=== PATIENT | male | born 1955 | race Caucasian/White ===

== ENCOUNTER → 2025-06-21 10:00 | Outpatient (REF) | payer MEDICARE, OTHER, SELFPAY ==
[2025-06-21 12:40] LABS: Hematocrit 41.9 % (39.0-52.0); Hemoglobin 13.8 g/dL (13.0-18.0); Mean Corp Hgb Conc. 32.9 g/dL (33.0-37.0); Mean Corpuscular Volume 88.6 fL (80.0-94.0); Nucleated Red Blood Cells % 0 % (-); Platelet Count 286 10^3/uL (130-400); Red Cell Dist. Width 13.6 % (11.5-14.5)
[2025-06-21 16:08] LABS: Blood Urea Nitrogen 22 mg/dl (9-20); Calcium 10.1 mg/dl (8.4-10.2); Carbon Dioxide 26 mmol/L (22-30); Chloride 103 mmol/L (98-107); Glucose 95 mg/dl (70-99); Potassium 4.5 mmol/L (3.5-5.1); Sodium 138 mmol/L (135-145); eGFR 59.84
== END ==
LOC: HWLAB 10:00
PROVIDERS: ATTENDING PHYSICIAN Student in an Organized Health Care Education/Training Program; FAMILY PHYSICIAN Family Medicine
DX: Z01.818 Encounter for other preprocedural examination (principal)
CPT/HCPCS: 36415; 80048; 85025; 93005

== ENCOUNTER 2025-10-13 16:50 | Emergency (ER) | payer MEDICARE, OTHER, SELFPAY ==
[2025-10-13 16:52] VITALS: BP 169/86
[2025-10-13 17:11] LABS: Hematocrit 38.1 % (39.0-52.0); Hemoglobin 12.9 g/dL (13.0-18.0); Mean Corp Hgb Conc. 33.9 g/dL (33.0-37.0); Mean Corpuscular Volume 84.7 fL (80.0-94.0); Nucleated Red Blood Cells % 0 % (-); Platelet Count 283 10^3/uL (130-400); Red Cell Dist. Width 14.9 % (11.5-14.5)
[2025-10-13 17:31] LABS: ALT (SGPT) 28 U/L (0-50); AST (SGOT) 27 U/L (17-59); Albumin 4.3 g/dl (3.5-5.0); Alkaline Phosphatase 270 U/L (38-126); Blood Urea Nitrogen 19 mg/dl (9-20); Calcium 9.6 mg/dl (8.4-10.2); Carbon Dioxide 27 mmol/L (22-30); Chloride 104 mmol/L (98-107); Glucose 102 mg/dl (70-99); Potassium 4.0 mmol/L (3.5-5.1); Sodium 137 mmol/L (135-145); Total Protein 6.9 g/dl (6.3-8.2); eGFR > 60.00
[2025-10-13 19:31] VITALS: BMI 32.9
[2025-10-13 21:08] VITALS: BP 156/86
--- NOTE | 2025-10-13 22:59 | ED.GENMED ---
History of Present Illness
General
Chief Complaint: Breathing Problem
Source: patient
Exam Limitations: none
Time Seen by Provider: 10/13/25 18:44
Nursing documentation reviewed up to this point in time: agreed with
History of Present Illness
History of Present Illness:
Note:
CHIEF COMPLAINT(S)
Persistent coughing and back muscle strain due to coughing.
HISTORY OF PRESENT ILLNESS
This is a 70-year-old male with a history of a persistent cough, leading to strained back muscles, which has resulted in disturbed sleep. The patient states the symptoms have been ongoing and worsened after receiving antibiotic treatments, most
recently taking amoxicillin. The cough occasionally leads to wheezing on the left side, which reportedly lasts up to an hour. He denies recent fever and is currently experiencing no nausea.
REVIEW OF SYSTEMS
- Respiratory: Persistent cough with occasional wheezing, particularly on the left side.
- Musculoskeletal: Back muscle pain due to coughing.
- General: No reported fever.
PHYSICAL EXAM
General: Alert, no acute distress.
Skin: Warm, dry.
Head: Normocephalic, atraumatic.
Neck: Supple, trachea midline.
Eye Ears, nose, mouth and throat: Oral mucosa moist.
Cardiovascular: Normal peripheral perfusion, No edema.
Respiratory: Non-labored respirations, with wheezing noted on the left side as described by the patient. Oxygen saturation is 98%.
Gastrointestinal: Abdomen nondistended.
Back: Normal range of motion, muscle strain observed due to persistent coughing.
Musculoskeletal: Normal range of motion, normal strength except for back strain related to coughing.
Neurological: Alert and oriented to person, place, time, and situation, No focal neurological deficit observed.
Psychiatric: Cooperative, appropriate mood & affect.
PROBLEM LIST
- Acute: Persistent cough with wheezing and consequent back muscle strain.
PLAN
- Perform a chest x-ray today to better understand the source of the wheezing and persistent cough.
- Administer a breathing treatment to address the respiratory symptoms.
- Review blood work and discuss further treatment based on x-ray results.
DIFFERENTIAL DIAGNOSIS
The Differential Diagnosis includes, in no particular order and is not limited to:
- Chronic obstructive pulmonary disease (COPD)
- Asthma
- Pneumonia
- Bronchitis
- Gastroesophageal reflux disease (GERD) with microaspiration
- Interstitial lung disease
- Cardiac-induced cough
- Post-nasal drip
- Pulmonary embolism
- Lung neoplasm
Disposition:
SUMMARY OF ENCOUNTER
The patient presented to the emergency department with a history leading to the diagnosis of lung cancer with bone metastasis and pneumonia superimposed upon bronchogenic carcinoma. The visit involved the management of persistent respiratory
symptoms and the evaluation of the current treatment plan. A discussion was held with pulmonology regarding further evaluation and the need for bronchoscopy.
MANAGEMENT OF THE PATIENTS CARE WAS DISCUSSED WITH
Pulmonology was consulted and will evaluate the patient in their office to plan for a bronchoscopy.
PLAN
- The patient will be treated with prednisone, Augmentin (amoxicillin and clavulanate), and doxycycline.
- Term precautions were given to the patient to address safety and health monitoring.
PATIENT EDUCATION AND COUNSELING
The patient was counseled on the importance of adhering to the prescribed medications and was provided with term precautions for monitoring and addressing any potential complications.
MEDICATION RECONCILIATION
The patient was prescribed prednisone, Augmentin (amoxicillin and clavulanate), and doxycycline for treatment.
MEDICAL DECISION MAKING
- Complexity of Data Reviewed: Chronic conditions affecting care include lung cancer with bone metastasis, pneumonia, and bronchogenic carcinoma. Differential diagnoses considered include COPD, asthma, pneumonia, bronchitis, and GERD with
microaspiration.
- Data:
Category 3: Discussion of management with pulmonology regarding follow-up evaluation and planning for bronchoscopy.
DIAGNOSIS
- Lung cancer with bone metastasis (ICD-10: C34.90, C79.51)
- Pneumonia superimposed upon bronchogenic carcinoma (ICD-10: J18.9, C34.90)
Past History
Past History
ED Past Medical History: None
ED Past Surgical History: None
Social History
Tobacco: Non-smoker
Alcohol: None
Drug: None
Living: with family
Phy Exam
Physical Exam
Physical Exam:
.
Scores
Heart Failure Risk
Heart Failure Risk Score: Not Applicable
Course
Orders/Labs/Results
Orders:
Orders
10/13/25 16:56
CR Chest - 2 Views Urgent
Comment:
Reason For Exam: respiratory distress
10/13/25 17:02
Complete Blood Count/With Diff Urgent
Comprehensive Metabolic Panel Urgent
10/13/25 19:21
CT Chest With Iv Contrast Urgent
Comment:
Reason For Exam: persistent cough, opacity seen on cxr
10/13/25 22:41
Dexamethasone Sod Phosphate [Decadron] 10 mg IV NOW STA
Abnormal Lab Results
10/13/25
17:02
RBC 4.50 L 10^6/uL
(4.70-6.10)
Hgb 12.9 L g/dL
(13.0-18.0)
Hct 38.1 L %
(39.0-52.0)
RDW 14.9 H %
(11.5-14.5)
Abs Immat Gran (auto) 0.1 H 10^3/uL
(0-0.05)
Absolute Neuts (auto) 7.2 H 10^3/uL
(1.4-6.5)
Absolute Monos (auto) 1.1 H 10^3/uL
(0.1-0.6)
Immature Gran % 0.6 H %
(0-0.5)
Lymphocytes % 14.1 L %
(20.5-51.1)
Monocytes % 11.2 H %
(1.7-9.3)
Glucose 102 H mg/dl
(70-99)
Alkaline Phosphatase 270 H U/L
(38-126)
10/13/25 17:02
10/13/25 17:02
Vital Signs
Initial and Last Documented VS:
Initial Vital Signs
Temp Pulse Resp BP Pulse Ox
97.5 F 83 18 169/86 96
10/13/25 16:52 10/13/25 16:52 10/13/25 16:52 10/13/25 16:52 10/13/25 16:52
Last Documented Vital Signs
Temp Pulse Resp BP Pulse Ox
97.5 F 77 22 156/86 94
10/13/25 16:52 10/13/25 21:15 10/13/25 21:15 10/13/25 21:08 10/13/25 23:03
*Pulse Oximetry
SaO2: 94
Oxygen Mode of Delivery: Room air
Patient hypoxic: no
*Critical Care Note
Total Time (30-74mins, 75-104mins- exclusive of procedures): Not Applicable
ED Attending Note
-
Portions of this chart may have been created with voice recognition software.� Occasional wrong word or��sound alike� substitutions may have occurred due to the inherent limitations of voice recognition software.
Discharge Plan
Departure
Patient Disposition: Home (Routine Discharge)
Date of Disposition: 10/13/25
Time of Disposition: 22:41
Patient with high blood pressure during this ER visit?: Yes
Condition: Good
Discharge Problem:
Pneumonia, Lung cancer metastatic to bone
Instructions: Lung cancer, Pneumonia in adults (DC), BLOOD PRESSURE
Prescriptions:
New
amoxicillin-pot clavulanate 875-125 mg tablet
1 tab PO BID Qty: 14 0RF
doxycycline hyclate 100 mg capsule
100 mg PO BID Qty: 14 0RF
prednisone 50 mg tablet
50 mg PO DAILY Qty: 5 0RF
Referrals:
Nii Jaramillo MD [Active, Pulmonary Medicine] - Call in 1-3 days for appt
Lynn Watters MD [Family Provider, Family Practice]
Interventions
Interventions:
*Risk Screen - Suicide Last Done: 10/13/25 16:52
*General Assessment Last Done: 10/13/25 19:30
*Neglect/Abuse Screening Last Done: 10/13/25 19:30
*ED- Fall Risk Assessment Last Done: 10/13/25 19:30
*ED COVID-19 Vaccine History Last Done: 10/13/25 19:30
*ED Influenza Vaccine History Last Done: 10/13/25 19:30
ED- Cardiac Assessment Last Done: 10/13/25 19:50
ED- Pulmonary Assessment Last Done: 10/13/25 19:50
Discharge Date and Time
Print Language: YAKUT
[2025-10-13] MEDS: DECADRON 10 MG IV (23:15)
== END 2025-10-13 23:40 | disposition home or self-care (01) ==
LOC: EMR 16:50
PROVIDERS: Emergency Medicine; EMERGENCY PHYSICIAN Emergency Medicine; FAMILY PHYSICIAN Family Medicine
DX: J18.9 Pneumonia, unspecified organism (principal); C34.90 Malignant neoplasm of unspecified part of unspecified bronchus or lung; C79.51 Secondary malignant neoplasm of bone; R03.0 Elevated blood-pressure reading, without diagnosis of hypertension
CPT/HCPCS: 99284; 96374; 71046; 71260; 80053; 85025; Q9967

== ENCOUNTER 2025-10-23 06:26 | Day surgery (SDC) | payer MEDICARE, OTHER, SELFPAY ==
[2025-10-20 13:41] VITALS: BMI 33.5
[2025-10-20 14:04] LABS: INR 0.98; PT 13.1 Sec (11.4-14.6)
[2025-10-20 14:05] LABS: APTT 28.3 Sec (23.4-35.0)
[2025-10-23 10:48] VITALS: BMI 32.4
[2025-10-23 10:56] VITALS: BP 151/83
[2025-10-23 12:45] VITALS: BP 151/83; BP 98/75
[2025-10-23 13:00] VITALS: BP 129/74
[2025-10-23 13:15] VITALS: BP 125/79
[2025-10-23 13:30] VITALS: BP 133/73
[2025-10-23 14:10] VITALS: BP 136/77
== END 2025-10-23 14:49 | disposition home or self-care (01) ==
LOC: SDS 06:26
PROVIDERS: ATTENDING PHYSICIAN Internal Medicine; FAMILY PHYSICIAN Family Medicine
DX: R91.8 Other nonspecific abnormal finding of lung field (principal); C34.12 Malignant neoplasm of upper lobe, left bronchus or lung; R93.89 Abnormal findings on diagnostic imaging of other specified body structures
CPT/HCPCS: 31629; 31628; 31624; 31623; 31627; 31654; 36415; 71045; 76000; 81459; 85610; 85730; 87015; 87070; 87102; 87116; 87205; 88112; 88173; 88305; 88333; 88334; 88342; 94640; C1713; C1887

== ENCOUNTER → 2025-11-15 17:23 | Outpatient (REF) | payer MEDICARE, OTHER, SELFPAY | LOC: MRI 3T 17:23 | PROVIDERS: ATTENDING PHYSICIAN Urology; FAMILY PHYSICIAN Family Medicine | DX: R97.20 Elevated prostate specific antigen [PSA] (principal); C61 Malignant neoplasm of prostate; E29.1 Testicular hypofunction | CPT/HCPCS: 72197; A9575 ==